=== PATIENT | female | born 1995 | race Caucasian/White ===

== ENCOUNTER 2016-07-11 01:41 | Inpatient (IN) | payer MEDICAID, OTHER ==
[2016-07-11] VITALS (10 sets, daily range): BP systolic 105–122; BP diastolic 56–73; PULSE 84–113; RESP 15–20; TEMP 97.6–98.6; O2SAT 98–100
[~2016-07-11] VITALS: Ht 165.1 cm; Wt 50.0 kg
[~2016-07-11 01:41] MED LIST: PRIL20CA PO; PROC5 PO; Z.0.BCPILL PO
[2016-07-11] MEDS ORDERED: AMMONIA AROMATIC INHALANT 0.33 ML NASAL ONE (01:45)
[2016-07-11] MEDS ORDERED: SODIUM CHLORIDE 0.9% FLUSH 5 ML FLUSH IVF PRN (01:45)
[2016-07-11] MEDS ORDERED: AMMONIA AROMATIC INHALANT 0.33 ML ONE (01:46)
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
[2016-07-11 02:15] LABS: AUTOMATED NEUTROPHIL # 2.8 TH/MM3 (1.8-7.7); BASOPHIL % 0.9 % (0.0-2.0); EOSINOPHIL # 0.1 TH/MM3 (0-0.4); EOSINOPHIL % 2.5 % (0.0-4.0); HEMO FLAGS DIFF FINAL; LYMPH % 31.2 % (9.0-44.0); LYMPHOCYTE # 1.5 TH/MM3 (1.0-4.8); MEAN CELL VOLUME 82.4 FL (80.0-100.0); MEAN CORPUSCULAR HEMOGLOBIN 28.5 PG (27.0-34.0); MEAN CORPUSCULAR HGB CONC 34.6 % (32.0-36.0); MONO % 7.3 % (0.0-8.0); NEUT % 58.1 % (16.0-70.0); PLATELET COUNT 296 TH/MM3 (150-450); RED BLOOD COUNT 4.86 MIL/MM3 (4.00-5.30); RED CELL DISTRIBUTION WIDTH 14.9 % (11.6-17.2); WHITE BLOOD COUNT 4.8 TH/MM3 (4.0-11.0)
[2016-07-11] MEDS ORDERED: FOSPHENYTOIN INJ 1,000 MGPE in SODIUM CHLORIDE 0.9% INJ 50 ML IV ONE (02:30)
[2016-07-11 02:45] LABS: AMPHETAMINE, URINE NEG (NEG); BARBITURATES, URINE NEG (NEG); COCAINE, URINE NEG (NEG)
[2016-07-11 02:50] LABS: ANION GAP 9 MEQ/L (5-15); AST (GOT) 17 U/L (16-38); BICARBONATE 22.6 MEQ/L (21.0-32.0); BLOOD UREA NITROGEN 9 MG/DL (7-18); CHLORIDE 110 MEQ/L (98-107); GLOMERULAR FILTRATION RATE 89 ML/MIN (>89); POTASSIUM 3.7 MEQ/L (3.5-5.1); SODIUM (NA) 142 MEQ/L (136-145)
[2016-07-11 02:56] LABS: ALKALINE PHOSPHATASE 88 U/L (45-117); ALT (GPT) 20 U/L (9-42); TOTAL BILIRUBIN ADULT 0.2 MG/DL (0.2-1.0)
--- NOTE | 2016-07-11 03:19 | RADRPT ---
EXAM DATE/TIME: 07/11/2016 03:06 [facility] COMPARISON: No previous studies available for comparison. INDICATIONS : Trauma, fall. ETOH RADIATION DOSE: 36.99 CTDIvol (mGy) MEDICAL HISTORY : None SURGICAL HISTORY : None. ENCOUNTER: Initial ACUITY: 1 day PAIN SCALE: 5/10 LOCATION: cranial TECHNIQUE: Multiple contiguous axial images were obtained of the head. Using automated exposure control and adj ustment of the mA and/or kV according to patient size, radiation dose was kept as low as reasonably a chievable to obtain optimal diagnostic quality images. FINDINGS: CEREBRUM: The ventricles are normal for age. No evidence of midline shift, mass lesion, hemorrhage or acute in farction. No extra-axial fluid collections are seen. POSTERIOR FOSSA: The cerebellum and brainstem are intact. The 4th ventricle is midline. The cerebellopontine angle i s unremarkable. EXTRACRANIAL: The visualized portion of the orbits is intact. SKULL: The calvaria is intact. No evidence of skull fracture. CONCLUSION: Normal examination. Wilmer Sawyer MD on July 11, 2016 at 3:17 Board Certified Radiologist. This report was verified electronically.
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
[2016-07-11] MEDS ORDERED: NS + KCL 20 MEQ INJ 1,000 ML IV SCH (07:12)
[2016-07-11] MEDS ORDERED: CHLORHEXIDINE GLUCONATE 2 % 1 PACK (2 CLOTHS) TOP PRN (07:15)
[2016-07-11] MEDS ORDERED: ONDANSETRON HCL 4 MG/2 ML VIAL IV PRN (07:15)
[2016-07-11] MEDS ORDERED: ACETAMINOPHEN 325 MG TAB PO PRN (07:15)
[2016-07-11] MEDS ORDERED: SODIUM CHLORIDE 0.9% FLUSH 5 ML FLUSH IV FLUSH PRN (07:15)
[2016-07-11] MEDS ORDERED: MISCELLANEOUS NURSING INFORMATION XX SCH (07:15)
[2016-07-11] MEDS ORDERED: LORazepam 2 MG/ML VIAL IV PUSH PRN (07:30)
[2016-07-11] MEDS: ENOXAPARIN SODIUM 40 MG/0.4 ML SYRINGE SQ SCH (07:39)
[2016-07-11] MEDS ORDERED: IOHEXOL 350 MG/ML 10 ML VIAL (for RAD DIAG) IV ONE (07:49)
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
[2016-07-11] MEDS: SODIUM CHLORIDE 0.9% FLUSH 5 ML FLUSH IV FLUSH SCH ×2 (09:00→19:49)
[2016-07-11] MEDS: THIAMINE HCL 100 MG TAB PO SCH (09:06)
--- NOTE | 2016-07-11 11:58 | MG ---
cc: MATTHEW GORDON M.D. Lab No: Date: 07/11/16 Age: 21 Sex: F Race: REQUESTING PHYSICIAN ____ An EEG was obtained on an emergency basis on this 21-year-old patient being evaluated for possible seizures. The patient has been given fosphenytoin. The patient awake and asleep. The EEG shows a mixture of low amplitude beta rhythms with some 10-14 per second alpha activity bilaterally. There are intermixed slower alpha with some theta rhythms on the left as well as the right temporal head regions, overall probably more on the left than right. Some associated sharp waves are seen in the left temporal head region. The patient seems awake and drowsy. Hyperventilation was not performed. Photic stimulation shows some driving response bilaterally. INTERPRETATION This EEG shows intermittent left more than right temporal slowing with associated sharp waves and possible sharp discharge to the findings suggest the possibility of left more than right temporal structural abnormality with possible but not definitive epileptiform features. No ictal pattern. Matthew Gordon MD OFC/EO /5:29 AM /11:42 AM
[2016-07-11] MEDS ORDERED: PHENYTOIN SODIUM 100 MG CAP PO SCH (12:00)
--- NOTE | 2016-07-11 12:08 | EKG ---
Date Performed: 07/11/2016 Time Performed: 02:26:00 PTAGE: 21 years EKG: Sinus rhythm NORMAL ECG NO PREVIOUS TRACING DOCTOR: Adrian Muhammad Interpretating Date/Time 07/11/2016 12:06:33
--- NOTE | 2016-07-11 12:11 | PD.CONS ---
Provisional Diagnosis Admission Date Jul 11, 2016 at 04:34 [place] I. Alcohol-induced mood disorder, Alcohol use disorder, [place] II. Deferred [place] III. Seizures [place] IV. Family member committed suicide [place] V. 55 History of Present Illness Service Psychiatry Consult Requested By Primary Care Physician Keenan Bauer M.D. HPI The patient is a 21-year-old woman, domicile with her parents, single , employed as a TAX PROFESSIONAL, without any previous psychiatric history, any previous suicidal attempts, any previous psychiatric hospitalizations, medical history of seizures, who [place] [facility] [place] apparent attempted suicide by hanging in the context of alcohol intoxication. as per ER note "Her parents found her with a belt wrapped around her neck and decreased level of consciousness. She had apparent tonic clonic seizure 1 minute in duration per [facility]. During transport she would intermittently become more alert, tearful, stating that she did not want to live anymore. Upon arrival to the ED she had apparent intermittent right upper extremity "jerking movements and R sided facial twitch". These occurred intermittently for about an hour. She had an EEG with preliminary concern for spikes, formal report pending. ED physician spoke with on-call neurologist, Dr. Hurley and patient was administered fosphenytoin 1 gram PE IV. Her alcohol level was 211 on arrival. Urine drug screen, acetaminophen, salicylate negative. CT brain was negative. ED physician has already placed under [place] Act. Patient was seen for psychiatric evaluation at bedside in the medical floor, her parents Mr. Nasir Alvarado and Ms. Светлана Alvarado were present during part of the evaluation, they also provide important collateral information about the patient. On psychiatric evaluation the patient was found calm and cooperative, pleasant and very easy to deal with, patient is states that she does not recall what happened last night, the last thing she remembered is she going with her best friend to eat some to a restaurant and taking some beers. When she arrived home "I was a little bit drunk and I know I went to sleep after saying goodbye to my parents, but after that I don't know anything". The patient says that for her this is all very strange "because I am not depressed, actually in very happy, I enjoy my life, I have a lot of plans for the future, I love my family and my friends". However she says that every since her cousin committed suicide about 2 years ago she has periods of sadness "because I miss him and it was a very sad story"as the patient was relating this she is start crying. At this moment the patient denies depressive symptoms, she reports good mood, she denies anhedonia, hopelessness, helplessness, worthlessness, she denies poorly with appetite, with concentration , problems sleeping, she denies suicidal and homicidal ideation. The patient denies visual and auditory hallucinations. No psychosis, paranoia, delusions, agitation, aggressive behavior observed. Patient is fully oriented 3. She reports just occasional use of alcohol, 1 or 2 times per month, usually 3-4 drinks. She denies the use of other illicit drugs. Her father states the last night minutes after the patient went to her room he heard a noise and when he went inside her room she was in the floor, jerking "as if she were having a seizure", basically unconscious, with a belt around her neck, and 30 seconds later after waking up she said "I want to go home with my cousin". Both parents confirms that the patient is a very happy person, they don't seem that the patient has been depressed, they do not think that she needs to be admitted in psychiatry, but they understand that there are issues unresolved since the of her cousin that needs to be addressed with a psychiatry in outpatient basis. Basically committed with this and they stated they would be responsible to find an appropriate mental health professional for her. That'll have any safety concern at this moment in taking the patient back home. Review of Systems Constitutional: DENIES: Diaphoretic episodes, Fatigue, Fever, Weight gain, Weight loss, Chills, Dizziness, Change in appetite, Night Sweats Eyes: DENIES: Blurred vision, Diplopia, Eye inflammation, Eye pain, Vision loss , Photosensitivity, Double Vision Ears, nose, mouth, throat: DENIES: Tinnitus, Hearing loss, Vertigo, Nasal discharge, Oral lesions, Throat pain, Hoarseness, Ear Pain, Running Nose, Epistaxis, Sinus Pain, Toothache, Odynophagia Respiratory: DENIES: Apneas, Cough, Snoring, Wheezing, Hemoptysis, Sputum production, Shortness of breath Cardiovascular: DENIES: Chest pain, Palpitations, Syncope, Dyspnea on Exertion , PND, Lower Extremity Edema, Orthopnea, Claudication Genitourinary: DENIES: Abnormal vaginal bleeding, Dysmenorrhea, Dyspareunia, Sexual dysfunction, Urinary frequency, Urinary incontinence, Urgency, Hematuria , Dysuria, Nocturia, Vaginal discharge Musculoskeletal: DENIES: Joint pain, Muscle aches, Stiffness, Joint Swelling, Back pain, Neck pain Integumentary: DENIES: Abnormal pigmentation, Pruritus, Rash, Nail changes, Breast masses, Breast skin changes, Nipple discharge Hematologic/lymphatic: DENIES: Bruising, Lymphadenopathy Immunologic/allergic: DENIES: Eczema, Urticaria Neurologic: DENIES: Abnormal gait, Headache, Localized weakness, Paresthesias, Seizures, Speech Problems, Tremor, Poor Balance Psychiatric: DENIES: Anxiety, Confusion, Mood changes, Depression, Hallucinations, Agitation, Suicidal Ideation, Homicidal Ideation, Delusions Past Family Social History Coded Allergies: No Known Allergies (Verified , 09/19/14) Unable to Obtain Active Prescriptions or Reported Meds Current Medications Medications (Trade) Dose Ordered Sig/Marleni Route Start Time Stop Time Status Last Admin IV Flush 2 ml 2 ml UNSCH PRN IVF 07/11/16 01:45 (NS + KCl 20 Meq Inj) 1,000 ml @ 100 mls/hr Q10H IV 07/11/16 07:12 07/11/16 17:11 07/11/16 07:39 (NS Flush) 2 ml UNSCH PRN IV FLUSH 07/11/16 07:15 (NS Flush) 2 ml BID IV FLUSH 07/11/16 09:00 (Tylenol) 650 mg Q6H PRN PO 07/11/16 07:15 (Zofran Inj) 4 mg Q6H PRN IV 07/11/16 07:15 (Lovenox Inj) 40 mg Q24H SQ 07/11/16 07:15 07/11/16 07:39 Miscellaneous Information 1 Q361D XX 07/11/16 07:15 (Chlorhexidine 2% Cloth) 3 pack Taper DAILY@04 TOP 07/12/16 04:00 07/08/17 03:59 (Chlorhexidine 2% Cloth) 3 pack UNSCH PRN TOP 07/11/16 07:15 (Ativan Inj) 1 mg Q5M PRN IV PUSH 07/11/16 07:30 (Vitamin B1) 100 mg DAILY PO 07/11/16 09:00 1/30/17 09:01 07/11/16 09:06 (Dilantin) 100 mg TID PO 07/11/16 13:00 Family History Her cousin committed suicide Social History He was born and raised in [place], she lives with her parents, she is employed as a TAX PROFESSIONAL, 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 Physical Exam Vital Signs Vital Signs Date Time Temp Pulse Resp B/P Pulse Ox O2 Delivery O2 Flow Rate FiO2 07/11/16 10:00 100 Room Air 07/11/16 10:00 98.6 96 20 105/62 Mental Status Examination Appearance young woman, age appearing, good hygiene, [facility], calm and cooperative Speech: Unremarkable Orientation: x3 Memory: Unremarkable Thought Process: Logical Thought Content: Unremarkable Hallucination Type: None Attention and Concentration: Good Suicidal Ideation: No Previous Suicide Attempts: No Homicidal Ideation: No Previous Homicide Attempts: No Insight: Good Judgement: WNL Affect: Good Affect if Inappropriate: Flat Mood: Appropriate Motor Activity: Normal gait Assessment & Plan Problem List: (1) Alcohol-induced mood disorder Assessment & Plan: On psychiatric evaluation the patient does not present any symptomatology of depression, anxiety, conrado or perceptual disturbances. She denies suicidal ideation, she denies visual and auditory hallucinations. Patient denies hopelessness, helplessness, worthlessness, problems with sleep, with appetite, with concentration. Recent episode in which the patient was found in the floor with the belt in her neck, jerking, most probably after having a seizure could be secondary to mood liability related with post ictal state or acute alcohol intoxication. It is highly probable the patient has still unresolved unconscious stress related with the suicide of her cousin and he would be beneficial to address in outpatient basis. At this moment the patient does not meet criteria for significant. No psychotropics indicated. Extensive psychoeducation, motivational support were provided to the patient and also to her parents. The patient or her parents verbalize agreement and understanding with the plan. Consul appreciated. ICD Code: F10.94 Assessment & Plan Estimated LOS: John Bourgeois MD Jul 11, 2016 12:11
[2016-07-11] MEDS: PHENYTOIN SODIUM 100 MG CAP PO SCH ×2 (12:48→17:54)
--- NOTE | 2016-07-11 13:12 | MB ---
cc: MATTHEW MALONEY M.D. DATE OF CONSULTATION 07/11/16 HISTORY She is a 21-year-old with history of apparent seizures after a suicide attempt. The patient drank alcohol heavily yesterday and subsequently apparently the parents found her at home with belt around her neck and she was poorly responsive. Appears that she was noted to have some right-sided twitching and seizure-like activity. In the emergency room she was given Dilantin. She has gradually recovered. Evidently there is a history of depression. She was not taking any medications. She had seizures that were around age the 13-14. She took Neurontin which apparently caused some aggressive behavior then. She was given some other anticonvulsant but she has been off medication for 4 years and there has been no seizure recurrence. She works as a DIETICIAN. She denies drug use. NEUROLOGICAL EXAM Showed an alert, pleasant woman. Her exam is quite benign at this point. Pupils equal and reactive. Neck is supple. Ocular movements and visual wetzel full. There is no hemiparesis. Reflexes 1-2 plus throughout. Plantar responses flexor. LABORATORY DATA CBC is normal. Chemistry also normal with an alcohol level of 211. The urine toxicology negative. ASSESSMENT Suicide attempt with some subsequent seizure-like activity. I spoke to the mother at bedside. The patient had some trembling, seizure-like activity involving the limbs and subsequent evaluation the emergency room also showed some seizure-like activity. She was started on Dilantin. I agree to continue with this for the time-being. The EEG shows some intermittent mild left more than right temporal abnormality of possible epileptiform significance. She is to have an MRI brain. Evidently, she is already scheduled to have a psychiatric evaluation. It appears that she has recovered well in regards to her alcohol binge and subsequent suicide attempt. Watch for delirium tremens. She had a CT brain and neck CTA studies which were both normal. Thank you for asking us to assist in her care. Matthew Maloney MD OFC/EO /10:45 AM /1:02 PM
[2016-07-12] VITALS: BP 101/53; PULSE 81; RESP 18; TEMP 98; O2SAT 98
[2016-07-12] MEDS ORDERED: CHLORHEXIDINE GLUCONATE 2 % 1 PACK (2 CLOTHS) TOP SCH (04:00)
[2016-07-12 05:14] VITALS: BP 98/54; PULSE 69; RESP 16; TEMP 97.6; O2SAT 98
[2016-07-12] MEDS: ENOXAPARIN SODIUM 40 MG/0.4 ML SYRINGE SQ SCH (05:44)
[2016-07-12 06:18] LABS: BICARBONATE 24.6 MEQ/L (21.0-32.0); POTASSIUM 4.1 MEQ/L (3.5-5.1)
[2016-07-12 08:00] VITALS: BP 105/80; PULSE 82; RESP 18; TEMP 97.7; O2SAT 100
[2016-07-12] MEDS: THIAMINE HCL 100 MG TAB PO SCH (08:45)
[2016-07-12] MEDS: PHENYTOIN SODIUM 100 MG CAP PO SCH ×3 (08:45→17:37)
[2016-07-12] MEDS: SODIUM CHLORIDE 0.9% FLUSH 5 ML FLUSH IV FLUSH SCH (08:46)
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
[2016-07-12] MEDS ORDERED: DILA100C PO (08:51)
--- NOTE | 2016-07-12 08:51 | HHI.DCPOC ---
Discharge Care Plan Diagnosis: (1) Seizure Additional Problems seizure Goals to Promote Your Health * To prevent worsening of your condition and complications * To maintain your health at the optimal level Directions to Meet Your Goals Take your medications as prescribed Follow your dietary instruction Follow activity as directed Keep your appointments as scheduled Take your immunizations and boosters as scheduled If your symptoms worsen call your PCP, if no PCP go to Urgent Care Center or Emergency Room Smoking is Dangerous to Your Health. Avoid second hand smoke Call the 24-hour hour crisis hotline for domestic abuse at Alvaro Sidhu MD Jul 12, 2016 08:51
[2016-07-12] MEDS ORDERED: GADODIAMIDE PF 287 MG/ML 10 ML VIAL (for RAD MRI) IV ONE (09:44)
--- NOTE | 2016-07-12 10:29 | RADRPT ---
EXAM DATE/TIME: 07/12/2016 09:33 [place] COMPARISON: CT BRAIN W/O CONTRAST, July 11, 2016, 3:06. INDICATIONS : Seizures. CONTRAST: 10 cc Omniscan (gadodiamide) IV MEDICAL HISTORY : Pancreatitis. SURGICAL HISTORY : None. ENCOUNTER: Initial ACUITY: 2 day PAIN SCORE: 0/10 LOCATION: cranial TECHNIQUE: Multiplanar, multisequence MRI of the brain was performed both prior to and following the administrat ion of paramagnetic contrast. FINDINGS: CEREBRUM: The ventricles are normal for age. No evidence of midline shift, mass lesion, hemorrhage or acute in farction. No extraaxial fluid collections are seen. The pituitary gland and suprasellar cistern are normal in configuration. WHITE MATTER: No significant signal abnormalities are seen in the white matter. POSTERIOR FOSSA: The cerebellum and brainstem are intact. The 4th ventricle is midline. The cerebellopontine angle is unremarkable. The cerebellar tonsils are normal in position. DIFFUSION IMAGING: No focal areas of restricted diffusion are seen. No evidence of acute infarction. EXTRACRANIAL: The visualized portions of the orbits and paranasal sinuses are unremarkable. POST-CONTRAST: No abnormal areas of parenchymal or dural enhancement. No evidence of blood-brain barrier breakdown. CONCLUSION: Normal examination for a patient of this age. Mil Morrow MD on July 12, 2016 at 10:26 Board Certified Radiologist. This report was verified electronically.
[2016-07-12 12:41] VITALS: BP 99/54; PULSE 72; RESP 16; TEMP 97; O2SAT 96
[2016-07-12 16:00] VITALS: BP 106/53; PULSE 71; RESP 18; TEMP 98.2; O2SAT 98
== END 2016-07-12 17:55 | disposition home or self-care (01) | DRG 101 ==
LOC: NEPC 01:41 → NEDA 04:34 → N03A 09:34 → N05B 19:07
PROVIDERS: ADMIT Internal Medicine; ATTEND Internal Medicine
DX: R56.9 Unspecified convulsions (principal); F10.14 Alcohol abuse with alcohol-induced mood disorder; F32.9 Major depressive disorder, single episode, unspecified; F10.129 Alcohol abuse with intoxication, unspecified; Y90.7 Blood alcohol level of 200-239 mg/100 ml; T14.91 Suicide attempt; X83.8XXA Intentional self-harm by other specified means, initial encounter; Y92.003 Bedroom of unspecified non-institutional (private) residence as the place of occurrence of the external cause
CPT/HCPCS: 70450; 70498; 70553; 80048; 80053; 80185; 80307; 80320; 80329; 82040; 84443; 84703; 85025; 93005; 95819; A9579; G0480; J1650; J3480; P9612; Q2009; Q9967

== ENCOUNTER 2017-04-25 02:15 | Inpatient (IN) | payer OTHER ==
[~2017-04-25] VITALS: Ht 165.1 cm; Wt 60.0 kg
[2017-04-25 02:15] VITALS: BP 102/59; PULSE 97; RESP 16; TEMP 99.1; O2SAT 100
[~2017-04-25 02:15] MED LIST changes: +DILA100C PO; -PRIL20CA PO; -PROC5 PO; -Z.0.BCPILL PO
[2017-04-25] MEDS ORDERED: CELE20TA PO (02:39)
[2017-04-25] MEDS ORDERED: MORPHINE SULFATE 4 MG/ML INJ IV PUSH ONE ×2 (03:00→03:45)
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
--- NOTE | 2017-04-25 03:24 | RADRPT ---
EXAM DATE/TIME: 04/25/2017 03:00 [facility] COMPARISON: No previous studies available for comparison. INDICATIONS : Trauma to humerus. MEDICAL HISTORY : None. SURGICAL HISTORY : None. ENCOUNTER: Initial ACUITY: 1 day PAIN SCORE: 10/10 LOCATION: Right upper extremity humerus, distal. FINDINGS: There is a comminuted supracondylar fracture present. Bony mineralization is normal. The glenohumeral joint is intact. No intra-articular extension is present. CONCLUSION: 1. Comminuted fracture distal humerus. Adrian Malcolm MD on April 25, 2017 at 3:21 Board Certified Radiologist. This report was verified electronically.
--- NOTE | 2017-04-25 03:25 | RADRPT ---
EXAM DATE/TIME: 04/25/2017 03:05 [facility] COMPARISON: No previous studies available for comparison. INDICATIONS : Trauma to elbow. MEDICAL HISTORY : None. SURGICAL HISTORY : None. ENCOUNTER: Initial ACUITY: 1 day PAIN SCORE: 10/10 LOCATION: Right upper extremity elbow FINDINGS: Comminuted fracture of the distal humerus is present without intra-articular extension. The radial he ad and olecranon are intact. No dislocation is seen CONCLUSION: 1. Comminuted fracture of distal humerus Adrian Malcolm MD on April 25, 2017 at 3:22 Board Certified Radiologist. This report was verified electronically.
[2017-04-25 03:30] VITALS: BP 112/66; PULSE 99; RESP 16; O2SAT 95
[2017-04-25 03:48] LABS: AUTOMATED NEUTROPHIL # 7.6 TH/MM3 (1.8-7.7); BASOPHIL % 0.5 % (0.0-2.0); EOSINOPHIL # 0.1 TH/MM3 (0-0.4); EOSINOPHIL % 0.7 % (0.0-4.0); HEMATOCRIT 40.2 % (35.0-46.0); HEMO FLAGS DIFF FINAL; LYMPH % 11.7 % (9.0-44.0); LYMPHOCYTE # 1.1 TH/MM3 (1.0-4.8); MEAN CORPUSCULAR HEMOGLOBIN 28.8 PG (27.0-34.0); MEAN CORPUSCULAR HGB CONC 33.8 % (32.0-36.0); MONO % 7.8 % (0.0-8.0); NEUT % 79.3 % (16.0-70.0); PLATELET COUNT 347 TH/MM3 (150-450); RED BLOOD COUNT 4.73 MIL/MM3 (4.00-5.30); RED CELL DISTRIBUTION WIDTH 15.6 % (11.6-17.2); WHITE BLOOD COUNT 9.6 TH/MM3 (4.0-11.0)
[2017-04-25 04:09] LABS: ALKALINE PHOSPHATASE 98 U/L (45-117); BETA HCG QUANT LESS THAN 1 MIU/ML (0-5); TOTAL BILIRUBIN ADULT 0.2 MG/DL (0.2-1.0)
[2017-04-25 04:12] LABS: ALT (GPT) 25 U/L (10-53); ANION GAP 10 MEQ/L (5-15); AST (GOT) 28 U/L (15-37); BICARBONATE 22.9 MEQ/L (21.0-32.0); BLOOD UREA NITROGEN 7 MG/DL (7-18); CHLORIDE 105 MEQ/L (98-107); GLOMERULAR FILTRATION RATE 92 ML/MIN (>89); POTASSIUM 3.4 MEQ/L (3.5-5.1); SODIUM (NA) 138 MEQ/L (136-145)
[2017-04-25] MEDS ORDERED: SODIUM CHLOR 0.9% 1000 ML INJ 1,000 ML IV SCH (06:02)
[2017-04-25] MEDS ORDERED: ACETAMINOPHEN 325 MG TAB PO PRN ×2 (06:15→13:15)
[2017-04-25] MEDS ORDERED: SENNOSIDES 8.6 MG TAB PO PRN (06:15)
[2017-04-25] MEDS ORDERED: MAGNESIUM HYDROXIDE SUSP 30 ML CUP PO PRN (06:15)
[2017-04-25] MEDS ORDERED: SODIUM CHLORIDE 0.9% FLUSH 10 ML FLUSH IV FLUSH PRN (06:15)
[2017-04-25] MEDS ORDERED: BISACODYL 10 MG SUPP RECTAL PRN (06:15)
[2017-04-25] MEDS ORDERED: LACTULOSE SYRUP 20 GM/30 ML CUP PO PRN (06:15)
[2017-04-25] MEDS ORDERED: ONDANSETRON HCL 4 MG/2 ML VIAL IVP PRN (06:15)
[2017-04-25] MEDS ORDERED: ACETAMINOPHEN/HYDROcodone 325 MG/5 MG TAB PO PRN (06:15)
[2017-04-25 06:33] VITALS: BP 106/59; PULSE 92; RESP 19; O2SAT 99
[2017-04-25] MEDS: MORPHINE SULFATE 4 MG/ML INJ IV PUSH PRN ×2 (06:34→20:38)
[2017-04-25 07:45] VITALS: BP 127/59
--- NOTE | 2017-04-25 07:49 | PD.ORT.PN ---
Subjective Subjective Remarks see full dictation Objective Vitals Vital Signs Date Time Temp Pulse Resp B/P (MAP) Pulse Ox O2 Delivery O2 Flow Rate FiO2 04/25/17 07:45 87 15 127/59 (81) 100 04/25/17 06:33 92 19 106/59 (75) 99 Room Air 04/25/17 04:00 16 04/25/17 03:46 17 04/25/17 03:30 99 16 112/66 (81) 95 Room Air 04/25/17 02:15 99.1 97 16 102/59 (73) 100 Room Air Result Diagram: 04/25/17 0330 04/25/17 0330 Imaging Last 24 hours Impressions Humerus X-Ray 04/25/17 0000 Signed Impressions: Service Date/Time: Tuesday, April 25, 2017 03:00 - CONCLUSION: 1. Comminuted fracture distal humerus. Adrian Malcolm MD Elbow X-Ray 04/25/17 0000 Signed Impressions: Service Date/Time: Tuesday, April 25, 2017 03:05 - CONCLUSION: 1. Comminuted fracture of distal humerus Adrian Malcolm MD Assessment & Plan Problem List: (1) Supracondylar fracture of right humerus with intercondylar extension ICD Codes: S42.491A - Other displaced fracture of lower end of right humerus, initial encounter for closed fracture Status: Acute Assessment and Plan Options discussed Recommend ORIF Informed consent was obtained Zachery Dickinson MD Apr 25, 2017 07:49
[2017-04-25] MEDS ORDERED: MIDAZOLAM HCL 2 MG/2 ML VIAL ONE (08:33)
[2017-04-25] MEDS ORDERED: FAMOTIDINE 20 MG/2 ML VIAL ONE (08:33)
[2017-04-25] MEDS ORDERED: ACETAMINOPHEN 1000 MG/100 ML 100 ML IV ONE ×2 (08:33→08:45)
[2017-04-25] MEDS ORDERED: MIDAZOLAM HCL 2 MG/2 ML VIAL IV PUSH ONE (08:45)
[2017-04-25] MEDS ORDERED: FAMOTIDINE 20 MG/2 ML VIAL IV PUSH ONE (08:45)
[2017-04-25] MEDS: SODIUM CHLORIDE 0.9% FLUSH 10 ML FLUSH IV FLUSH SCH (09:00)
[2017-04-25] MEDS ORDERED: ceFAZolin INJ 1,000 MG VIAL ONE (09:57)
[2017-04-25] MEDS ORDERED: VANCOMYCIN HCL 1000 MG VIAL ONE (09:58)
[2017-04-25] MEDS ORDERED: GENTAMICIN SULFATE 80 MG/2 ML VIAL ONE (10:56)
[2017-04-25] MEDS ORDERED: Post-op Orders (for Pharmacy) MISC XX ONE ×2 (13:15)
[2017-04-25] MEDS ORDERED: MISCELLANEOUS NURSING INFORMATION XX PRN (13:15)
[2017-04-25] MEDS ORDERED: NALOXONE HCL 0.4 MG/ML AMP IV PUSH PRN (13:15)
[2017-04-25] MEDS ORDERED: diphenhydrAMINE HCL 25 MG CAP PO PRN (13:15)
[2017-04-25] MEDS ORDERED: *morphine SULFATE 8 MG/ML PERIprocedure ONLY ONE ×3 (13:27→13:49)
[2017-04-25] MEDS: LACTATED RINGER'S 1000 ML INJ 1,000 ML IV SCH (13:30)
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
[2017-04-25] MEDS ORDERED: DO NOT ADM ANY ANTICOAGULANT DRUGS PRN (13:45)
--- NOTE | 2017-04-25 13:58 | RADRPT ---
EXAM DATE/TIME: 04/25/2017 12:23 [facility] COMPARISON: ELBOW RIGHT LIMITED (AP & LAT), April 25, 2017, 3:05. INDICATIONS : Open reduction in operating room. MEDICAL HISTORY : None. SURGICAL HISTORY : None. ENCOUNTER: Subsequent ACUITY: 2 days PAIN SCORE: Non-responsive. LOCATION: Right upper extremity FINDINGS: Multiple view examination of the right elbow demonstrates interval open reduction and internal fixati on of the comminuted distal humeral fracture with intra-articular extension. Fracture fragments are i n excellent anatomic alignment. CONCLUSION: Successful open reduction and internal fixation of the comminuted and displaced distal louis ral fracture with intra-articular extension. Fracture fragments are in adequate anatomic. Gama Briggs MD on April 25, 2017 at 13:54 Board Certified Radiologist. This report was verified electronically.
[2017-04-25] MEDS ORDERED: PCA - TOTAL MG MORPHINE DELIVERED PER SHIFT SCH ×2 (14:00)
[2017-04-25] MEDS ORDERED: *HYDROmorphone PF 1 MG VIAL PERIprocedural Use ONLY ONE (14:15)
[2017-04-25 16:00] VITALS: BP 123/66; PULSE 114; RESP 18; TEMP 98.7; O2SAT 95
[2017-04-25] MEDS: oxyCODONE/ACETAMINOPHEN 5 MG/325 MG TAB PO PRN ×2 (17:00→22:42)
[2017-04-25] MEDS: PHENYTOIN SODIUM 100 MG CAP PO SCH (17:01)
--- NOTE | 2017-04-25 17:37 | PD.OP ---
Operative Report Preoperative Diagnosis: (1) Supracondylar fracture of right humerus with intercondylar extension Postoperative Diagnosis: (1) Supracondylar fracture of right humerus with intercondylar extension Procedure: Right Elbow Open Reduction and Internal Fixation Anesthesia: General Surgeon: Zachery Dickinson MD Unemployment Specialist(s): Radu WEEMS Operation and Findings: see dictation Zachery Dickinson MD Apr 25, 2017 17:37
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
[2017-04-25] MEDS: DOCUSATE SODIUM 50 MG/SENNA 8.6 MG TAB PO SCH (20:37)
[2017-04-25 20:45] VITALS: BP 117/67; PULSE 84; RESP 16; TEMP 97.3; O2SAT 98
[2017-04-26 00:45] VITALS: BP 116/67; PULSE 72; RESP 16; TEMP 97.9; O2SAT 99
[2017-04-26 04:55] VITALS: BP 103/49; PULSE 71; RESP 16; TEMP 96.4; O2SAT 98
[2017-04-26] MEDS: oxyCODONE/ACETAMINOPHEN 5 MG/325 MG TAB PO PRN ×2 (05:28→09:27)
[2017-04-26 06:31] LABS: BICARBONATE 24.7 MEQ/L (21.0-32.0)
[2017-04-26 06:43] LABS: AUTOMATED NEUTROPHIL # 7.1 TH/MM3 (1.8-7.7); BASOPHIL % 0.2 % (0.0-2.0); HEMATOCRIT 34.9 % (35.0-46.0); HEMO FLAGS DIFF FINAL; LYMPH % 9.6 % (9.0-44.0); LYMPHOCYTE # 0.9 TH/MM3 (1.0-4.8); MEAN CELL VOLUME 84.4 FL (80.0-100.0); MEAN CORPUSCULAR HEMOGLOBIN 28.3 PG (27.0-34.0); MEAN CORPUSCULAR HGB CONC 33.5 % (32.0-36.0); MONO % 17.2 % (0.0-8.0); PLATELET COUNT 335 TH/MM3 (150-450); RED BLOOD COUNT 4.14 MIL/MM3 (4.00-5.30); RED CELL DISTRIBUTION WIDTH 15.6 % (11.6-17.2); WHITE BLOOD COUNT 9.7 TH/MM3 (4.0-11.0)
[2017-04-26 07:21] VITALS: O2SAT 98
--- NOTE | 2017-04-26 07:52 | PD.ORT.PN ---
Subjective Subjective Remarks Patient comfortable Objective Vitals Vital Signs Date Time Temp Pulse Resp B/P (MAP) Pulse Ox O2 Delivery O2 Flow Rate FiO2 04/26/17 07:21 98 21 04/26/17 04:55 96.4 71 16 103/49 (67) 98 04/26/17 00:45 97.9 72 16 116/67 (83) 99 04/25/17 20:45 97.3 84 16 117/67 (84) 98 04/25/17 16:00 98.7 114 18 123/66 (85) 95 04/25/17 14:30 99.2 80 16 121/67 (85) 99 Room Air 04/25/17 14:15 78 17 124/69 (87) 95 04/25/17 14:00 76 20 122/76 (91) 99 04/25/17 13:45 87 16 126/73 (90) 100 04/25/17 13:30 88 15 114/76 (89) 96 04/25/17 13:24 99.2 87 20 114/74 (87) 97 Room Air 04/25/17 09:10 88 16 96 04/25/17 08:45 16 96 I/O 04/25/17 04/25/17 04/25/17 04/26/17 04/26/17 04/26/17 07:00 15:00 23:00 07:00 15:00 23:00 Intake Total 1000 ml 360 ml 460 ml Output Total 50 ml Balance 950 ml 360 ml 460 ml Intake Oral 360 ml 360 ml IV Total 100 ml Other 1000 ml Output Estimated Blood Loss 50 ml # Voids 1 2 # Bowel Movements 0 0 Result Diagram: 04/26/17 0506 04/26/17 0522 Imaging Last 24 hours Impressions Humerus X-Ray 04/25/17 0000 Signed Impressions: Service Date/Time: Tuesday, April 25, 2017 03:00 - CONCLUSION: 1. Comminuted fracture distal humerus. Adrian Malcolm MD Elbow X-Ray 04/25/17 0000 Signed Impressions: Service Date/Time: Tuesday, April 25, 2017 03:05 - CONCLUSION: 1. Comminuted fracture of distal humerus Adrian Malcolm MD Objective Remarks Right upper extremity Splint in place motor intact decreased sensation in little finger Assessment & Plan Ortho Post Op Day #: 1 (ORIF right distal humerus) Problem List: (1) Supracondylar fracture of right humerus with intercondylar extension ICD Codes: S42.491A - Other displaced fracture of lower end of right humerus, initial encounter for closed fracture Status: Acute Assessment and Plan Medically appears stable Pain coming under control Ok to D/C home this afternoon F/U in 2 weeks Zachery Dickinson MD Apr 26, 2017 07:52
[2017-04-26 08:00] VITALS: BP 107/59; PULSE 76; RESP 18; TEMP 98; O2SAT 97
[2017-04-26] MEDS: DOCUSATE SODIUM 50 MG/SENNA 8.6 MG TAB PO SCH (08:48)
[2017-04-26] MEDS: PHENYTOIN SODIUM 100 MG CAP PO SCH (08:48)
[2017-04-26] MEDS: LACTATED RINGER'S 1000 ML INJ 1,000 ML IV SCH (08:52)
[2017-04-26] MEDS: SODIUM CHLORIDE 0.9% FLUSH 10 ML FLUSH IV FLUSH SCH (09:00)
[2017-04-26] MEDS ORDERED: CITALOPRAM HYDROBROMIDE 20 MG TAB PO SCH (09:00)
--- NOTE | 2017-04-26 10:13 | HHI.PR ---
Subjective Remarks Follow-up fracture distal humerus 04/26/17-status post repair right humerus, no acute event overnight. Completed last dose of antibiotics. Clear by orthopedic surgery for discharge. Objective Vitals Vital Signs Date Time Temp Pulse Resp B/P (MAP) Pulse Ox O2 Delivery O2 Flow Rate FiO2 04/26/17 08:00 98.0 76 18 107/59 (75) 97 04/26/17 07:21 98 21 04/26/17 04:55 96.4 71 16 103/49 (67) 98 04/26/17 00:45 97.9 72 16 116/67 (83) 99 04/25/17 20:45 97.3 84 16 117/67 (84) 98 04/25/17 16:00 98.7 114 18 123/66 (85) 95 04/25/17 14:30 99.2 80 16 121/67 (85) 99 Room Air 04/25/17 14:15 78 17 124/69 (87) 95 04/25/17 14:00 76 20 122/76 (91) 99 04/25/17 13:45 87 16 126/73 (90) 100 04/25/17 13:30 88 15 114/76 (89) 96 04/25/17 13:24 99.2 87 20 114/74 (87) 97 Room Air I/O 04/25/17 04/25/17 04/25/17 04/26/17 04/26/17 04/26/17 07:00 15:00 23:00 07:00 15:00 23:00 Intake Total 1000 ml 360 ml 460 ml 98 ml Output Total 50 ml Balance 950 ml 360 ml 460 ml 98 ml Intake Oral 360 ml 360 ml IV Total 100 ml 98 ml Other 1000 ml Output Estimated Blood Loss 50 ml # Voids 1 2 # Bowel Movements 0 0 Result Diagram: 04/26/17 0506 04/26/17 0522 Imaging Last Impressions Humerus X-Ray 04/25/17 0000 Signed Impressions: Service Date/Time: Tuesday, April 25, 2017 03:00 - CONCLUSION: 1. Comminuted fracture distal humerus. Adrian Malcolm MD Elbow X-Ray 04/25/17 0000 Signed Impressions: Service Date/Time: Tuesday, April 25, 2017 12:23 - CONCLUSION: Successful open reduction and internal fixation of the comminuted and displaced distal humeral fracture with intra-articular extension. Fracture fragments are in adequate anatomic. Gama Briggs MD Objective Remarks GENERAL: NAD SKIN: Warm and dry. HEAD: Normocephalic. EYES: No scleral icterus. No injection or drainage. NECK: Supple, trachea midline. No JVD or lymphadenopathy. CARDIOVASCULAR: Regular rate and rhythm without murmurs, gallops, or rubs. RESPIRATORY: Breath sounds equal bilaterally. No accessory muscle use. GASTROINTESTINAL: Abdomen soft, non-tender, nondistended. MUSCULOSKELETAL: No cyanosis, or edema. Right upper extremity repair, and in sling-neurovascular intact BACK: Nontender without obvious deformity. No CVA tenderness. Procedures Status post Right elbow open reduction internal fixation using [employer] specialty locking plate 04/26/17 A/P Problem List: (1) Fracture of distal end of right humerus ICD Code: S42.401A - Unspecified fracture of lower end of right humerus, initial encounter for closed fracture Status: Acute (2) Seizure disorder ICD Code: G40.909 - Epilepsy, unspecified, not intractable, without status epilepticus Status: Chronic Assessment and Plan 22-year-old female with Fracture of distal end of right humerus Humerus x-ray with finding of comminuted fracture of distal humerus Status post Right elbow open reduction internal fixation using [employer] specialty locking plate 04/26/17. Management per orthopedic surgery Treatment with parenteral IV pain management, IV antibiotics History of seizure disorder Currently on Dilantin History of anxiety Continue Celexa DVT prophylaxis: Bilateral SCDs Discharge Planning Discharge patient to home Condition on discharge: Improved Regular Diet as tolerated Ad Preeti activity Rx written: See EMR Follow-up with primary care physician, orthopedic surgery in 1-2 weeks Problem Qualifiers (1) Fracture of distal end of right humerus: Qualified Codes: S42.401A - Unspecified fracture of lower end of right humerus , initial encounter for closed fracture Isael Hi MD Apr 26, 2017 10:12
== END 2017-04-26 11:28 | disposition home or self-care (01) | DRG 494 ==
LOC: NEPE 02:15 → NEDA 06:16 → N06A 14:48
PROVIDERS: ADMIT Hospitalist; ATTEND Hospitalist
PROC: 0PSF04Z Reposition Right Humeral Shaft with Internal Fixation Device, Open Approach (ICD-10-PCS; principal; 2017-04-25 09:59)
DX: S42.421A Displaced comminuted supracondylar fracture without intercondylar fracture of right humerus, initial encounter for closed fracture (principal); F41.9 Anxiety disorder, unspecified; G40.909 Epilepsy, unspecified, not intractable, without status epilepticus; W22.8XXA Striking against or struck by other objects, initial encounter; Y93.89 Activity, other specified
CPT/HCPCS: 73060; 73070; 73080; 76000; 80048; 80053; 80185; 84702; 85025; 94150; 96374; 96376; C1713; J0131; J0690; J1170; J1580; J2250; J2270; J2405; J3370; J7120